=== PATIENT | female | born 1995 | race Two or more races ===

== ENCOUNTER 2023-04-18 10:38 | Emergency (ER) | payer OTHER ==
[~2023-04-18] VITALS: Ht 160 cm; Wt 77.1 kg
[2023-04-18 11:34] LABS: HEMATOCRIT 37.1 % (36.0-45.00); HEMOGLOBIN 12.3 g/dL (12.0-15.00); MEAN CELL VOLUME 84.8 fL (80.00-100.00); PLATELET COUNT 310 K/uL (150-450); RED BLOOD COUNT 4.38 M/uL (4.00-6.00); RED CELL DISTRIBUTION WIDTH 13.8 % (11.5-14.5)
[2023-04-18 12:00] LABS: CALCIUM 9.1 mg/dL (8.5-10.1); CREATININE SERUM 0.76 mg/dL (0.55-1.02); GFR 92.72; POTASSIUM 3.43 mEq/L (3.5-5.1)
[2023-04-18 12:54] LABS: URINE APPEARANCE Cloudy; URINE BILIRRUBIN Negative (NEGATIVE); URINE BLOOD Negative; URINE COLOR Yellow; URINE GLUCOSE Negative (NEGATIVE); URINE LEUKOCYTE Negative; URINE NITRATE Negative; URINE PROTEIN Negative (NEGATIVE); URINE UROBILINOGEN 0.2 E.U./dl
[2023-04-18 12:57] LABS: URINE EPITHELIAL CELLS 2.9 uL (0.0-38.8); URINE WBC 2.4 uL (0.0-23.2)
[2023-04-18 13:14] LABS: URINE RBC 1.1 uL (0.0-20.8)
== END 2023-04-18 14:06 | disposition home or self-care (01) ==
LOC: ER 10:38
PROVIDERS: Emergency Medicine
DX: R10.84 Generalized abdominal pain (principal)